=== PATIENT | female | born 1950 | race Caucasian/White ===

== ENCOUNTER 2017-03-07 05:55 | Day surgery (SDC) | payer MEDICARE ==
[2017-03-07] MEDS ORDERED: Ketamine HCl 50 MG/ML IV ONE (05:56)
[2017-03-07] MEDS ORDERED: DIPRIVAN 200 MG/20 ML IV ONE (05:56)
[2017-03-07] MEDS ORDERED: Lactated Ringers 1,000 ML IV SCH (06:30)
--- NOTE | 2017-03-07 08:02 | OP ---
SURGERY DATE/TIME: 03/07/2017 0717 PREOPERATIVE DIAGNOSIS: Diverticulitis. POSTOPERATIVE DIAGNOSIS: Few scattered sigmoid diverticula otherwise normal colon. PROCEDURE: Colonoscopy. SURGEON: Dr. Mcconnell. ANESTHESIA: Medications were given by the anesthesia department. HISTORY: The patient is a 66 year old white female presenting now for colonoscopic evaluation. She reports it has been 12 years since her previous colonoscopy which was normal. The patient has been having left lower quadrant abdominal pain. She went to the emergency room and had CT scan which showed diverticulitis. The patient now presents for colonoscopic evaluation. She was appraised of the risks of the procedure including the risk of perforation, phlebitis, untoward reaction to medication, bleeding or missed lesions. The patient verbalized her understanding and desired to have the procedure performed. DESCRIPTION OF PROCEDURE: The patient was given the medications by the anesthesia department. She had continuous pulse oximetry, ECG monitoring, intermittent blood pressure monitoring and tidal CO2 monitoring during the examination. She was placed in left lateral decubitus position. A digital rectal examination was performed and revealed normal anal sphincter tone and no masses. The flexible Olympus pediatric colonoscope was used to intubate the rectum. A view of the colon was developed sequentially to the cecum. Upon insertion and withdrawal and retroflex view, no mucosal lesions were noted other than a few scattered diverticula. The scope was removed from the patient who tolerated the procedure well and was sent back to OP recovery in good condition. The prep was noted to be good.
[2017-03-07 08:51] VITALS: BP 156/79; PULSE 62; O2SAT 99
== END 2017-03-07 08:50 | disposition home or self-care (01) ==
LOC: SDC 05:55
PROVIDERS: ATTEND Family Medicine
PROC: 0DJD8ZZ Inspection of Lower Intestinal Tract, Via Natural or Artificial Opening Endoscopic (ICD-10-PCS; principal; 2017-03-07)
DX: K57.30 Diverticulosis of large intestine without perforation or abscess without bleeding (principal)
CPT/HCPCS: 00810; J2704

== ENCOUNTER 2020-11-22 10:03 | Day surgery (SDC) | payer MEDICARE ==
[2020-11-22] MEDS ORDERED: Sodium Chloride 0.9(Preservative Free) 10 ML IJ ONE (10:04)
[2020-11-22] MEDS ORDERED: Depo-Medrol 40 MG/ML IM ONE (10:04)
[2020-11-22] MEDS ORDERED: DIPRIVAN 200 MG/20 ML IV ONE (11:41)
--- NOTE | 2020-11-22 12:18 | XRAY ---
Indication: Left L4-S1 transforaminal CHRISTIANO. Intraoperative fluoroscopy provided for 44 seconds. 4 digital spot image submitted for interpretation demonstrates posterior needle tip projecting over the left L4 and L5 nerve roots. Small amount of contrast injected for needle tip placement. Correlate with intraoperative findings/report. Incidental incompletely visualized bilateral L4 posterior fusion spinal hardware.
--- NOTE | 2020-11-22 12:21 | XRAY ---
44 seconds fluoroscopy time in surgery for left L4-S1 transforaminal CHRISTIANO.
[2020-11-22] MEDS ORDERED: Lactated Ringers 1,000 ML IV ONE (15:32)
== END 2020-11-22 12:10 | disposition home or self-care (01) ==
LOC: SDC-PAIN 10:03
PROVIDERS: ATTEND Psychiatry & Neurology Pain Medicine
DX: M54.16 Radiculopathy, lumbar region (principal); Z79.899 Other long term (current) drug therapy
CPT/HCPCS: 64479; 64480; 72100; 77003; J1030; J2704; Q9966

== ENCOUNTER 2021-04-29 19:44 | Emergency (ER) | payer MEDICARE ==
[2021-04-29] MEDS ORDERED: Sodium Chloride 0.9% 1000 ML 1,000 ML IV STA (19:49)
[2021-04-29] MEDS ORDERED: Sodium Chloride 0.9% 1000 ML 1,000 ML ONE (19:55)
[2021-04-29 21:57] LABS: INR 1.02 (0.8-3.0)
[2021-04-29 21:59] VITALS: O2SAT 98
[2021-04-29 22:03] LABS: ALBUMIN 4.2 g/dL (3.5-5.0); ALKALINE PHOSPHATASE 64 U/L (38-126); ANION GAP 17.2 MEQ/L (5-15); BLOOD UREA NITROGEN 17 mg/dL (7-17); CHLORIDE 103 mmol/L (98-107); Calcium 9.1 mg/dL (8.4-10.2); Carbon Dioxide 22 mmol/L (22-30); Creatinine 1 0.83 mg/dL (0.52-1.04); EST GLOMERULAR FILTRATION RATE > 60.0 ML/MIN; Glucose 98 mg/dL (74-106); Potassium 4.4 mmol/L (3.5-5.1); SGOT/AST 24 U/L (14-36); SGPT/ALT 14 U/L (0-35); SODIUM 138 mmol/L (137-145); Total Protein 6.9 g/dL (6.3-8.2)
[2021-04-29 22:07] VITALS: BP 134/60; PULSE 83
[2021-04-29 22:07] LABS: BASOPHIL % 0.2 % (0.0-0.4); Basophil (Absolute #) 0.02 (0-0.4); Eosinophil % 0.3 % (0.00-5.0); Eosinophil (Absolute #) 0.03 (0-0.5); Hematocrit 38.8 % (35-47); Hemoglobin 12.2 gm/dl (12.0-16.0); Lymphocyte (Absolute #) 1.11 (1.0-4.6); Lymphocytes % 10.4 % (24.0-44.0); Mean Cell Volume 92.4 fl (78-100); Mean Corpuscular Hgb Concent. 31.4 g/dl (32-36); Monocyte (Absolute #) 1.13 (0.0-1.3); Monocytes % 10.6 % (0.0-12.0); Neutrophil % 78.5 % (36.0-66.0); Platelet Count 153 K/mm3 (150-450); Red Cell Distribution Width 13.9 % (11.5-14.0); White Blood Count 10.7 K/mm3 (4.0-10.5)
--- NOTE | 2021-04-29 22:45 | ERPHSYRPT ---
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 She has been having pain in her neck and shoulders for 2 days and took some extra strength Tylenol for that prior to the episode of syncope. She has had no other pain no shortness of breath syncope was occurred about 1/2-hour pr ior to arrival uncertain of how long she was out she did feel it coming on as her vision got dark etc. Witnessed: by family Prior Episodes: single episode today Timing/Duration: today Precipitating Factors: lightheadedness Context: sitting Loss of Consciousness: brief (seconds) Charcter of event(s): felt faint Allergies/Adverse Reactions: acetaminophen [From Ultracet] Allergy (Verified 04/29/21 20:00) pass out tramadol [From Ultracet] Allergy (Verified 04/29/21 20:00) Vomiting Home Medications: Pregabalin [Lyrica] 100 mg PO BID 06/10/14 [History] Zolpidem Tartrate [Ambien] 5 mg PO QHS 06/10/14 [History] Bacillus Coagulans [Probiotic] 1 each PO DAILY 03/05/17 [History] Cholecalciferol (Vitamin D3) [Vitamin D] 2,000 unit PO DAILY 03/05/17 [History] Cyanocobalamin (Vitamin B-12) [Vitamin B-12] 1,000 mcg PO DAILY 03/05/17 [History] Magnesium 250 mg PO DAILY 03/05/17 [History] Polyethylene Glycol 3350 17 gm [Miralax Powder 17GM PACKET] 17 gm PO DAILY 03/05/17 [History] Zoledronic Acid/Mannitol/Wate* [Reclast 5 MG/100 Ml Solution] 5 mg IV UD 03/05/17 [History] Ibuprofen [Ibuprofen Ib] 200 mg PO Q6HPRN PRN 10/28/17 [History] [place]-3/Dha/Epa/Fish Oil [[place] 3 500 Softgel] 1 each PO DAILY 12/04/18 [History] Hx Tetanus, Diphtheria Vaccination/Date Given: Yes Hx Influenza Vaccination/Date Given: Yes Hx Pneumococcal Vaccination/Date Given: Yes Immunizations Up to Date: No Travel Risk - International Travel Have you traveled outside of the country in past 3 weeks: No - Coronavirus Screening Are you exhibiting any of the following symptoms?: No Close contact with a COVID-19 positive Pt in past 14-21 Days: No - Vaccine Status Have you recieved a Covid-19 vaccination: Yes Acls Specialist: Moderna - Vaccination Dates Date of 2cond Vaccination (if applicable): 09/06 Comment: booster 04/08 - Past Medical History Pertinent Past Medical History: No Neurological History: No Pertinent History ENT History: No Pertinent History Cardiac History: No Pertinent History Respiratory History: No Pertinent History Endocrine Medical History: No Pertinent History Musculoskeletal History: Muscular Dystrophy, Osteoarthritis, Osteoporosis GI Medical History: No Pertinent History History: No Pertinent History Psycho-Social History: No Pertinent History Female Reproductive Disorders: No Pertinent History Other Medical History: FIBROMYALGIA, MYOTONIC MD, L-SPINE FUSION 2007 - Past Surgical History Past Surgical History: Yes Neuro Surgical History: No Pertinent History Cardiac: No Pertinent History Respiratory: No Pertinent History Gastrointestinal: No Pertinent History Genitourinary: No Pertinent History Musculoskeletal: No Pertinent History Female Surgical History: Tubal Ligation, Other Other Surgical History: back surgery, cryo to cervix, T&A, leg surgery - Social History Smoking Status: Never smoker Exposure to second hand smoke: No Drug Use: none Patient Lives Alone: No - Review of Systems Constitutional: No Fever, No Chills Eyes: No Symptoms Ears, Nose, & Throat: No Symptoms Respiratory: No Cough, No Dyspnea Cardiac: No Chest Pain, No Edema, No Syncope Abdominal/Gastrointestinal: No Abdominal Pain, No Nausea, No Vomiting, No Diarrhea Genitourinary Symptoms: No Dysuria Musculoskeletal: No Back Pain, No Neck Pain Skin: No Rash Neurological: No Dizziness, No Focal Weakness, No Sensory Changes Psychological: No Symptoms Endocrine: No Symptoms All Other Systems: Reviewed and Negative Physical Exam - Nursing Vital Signs Nursing Vital Signs: Initial Vital Signs Temperature 98.6 F 04/29/21 20:01 Pulse Rate 67 04/29/21 20:01 Respiratory Rate 18 04/29/21 20:01 Blood Pressure 135/82 04/29/21 20:01 O2 Sat by Pulse Oximetry 97 04/29/21 20:01 Pain Scale Pain Intensity 5 - [place] Coma Scale Best Eye Response (Annia): (4) open spontaneously Best Verbal Response (Annia): (5) oriented Best Motor Response (Annia): (6) obeys commands [place] Total: 15 - Physical Exam General Appearance: mild distress, alert Eye Exam: bilateral eye: PERRL, EOMI Ears, Nose, Throat Exam: normal ENT inspection, pharynx normal, moist mucous membranes Neck Exam: normal inspection, non-tender, supple, full range of motion Respiratory: normal breath sounds, lungs clear, No chest tenderness, No respiratory distress Cardiovascular: regular rate/rhythm, capillary refill <2 sec, No murmur, No pulse deficit Gastrointestinal: soft, No tenderness, No distention, No mass Back Exam: normal inspection, normal range of motion, No CVA tenderness, No vertebral tenderness Extremity Exam: normal inspection, normal range of motion, pelvis stable, No tenderness Mental Status: alert, oriented x 3, 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 Exam: normal speech, PERRL, No facial droop Coordination/Gait: normal finger to nose Motor/Sensory: no motor deficit, no sensory deficit, no pronator drift Skin Exam: normal color, warm, dry, No rash SpO2: 98 - Course Nursing assessment & vital signs reviewed: Yes EKG Interpreted by Me: RATE (63), Sinus Rhythm, NORMAL AXIS, NORMAL INTERVALS, NORMAL QRS, NORMAL ST-T - Radiology Exams Chest X-ray Interpretation: Interpreted by me, Negative - CT Exams Head CT Interpretation: Tele-radiologist Report Cervical Spine CT Interpretation: Tele-radiologist Report Ordered Tests: Active Orders 24 hr Category Date Time Status EKG-ER Only STAT Care 04/29/21 19:49 Active IV Insertion STAT Care 04/29/21 19:49 Active Orthostatic Vital Signs STAT Care 04/29/21 19:49 Active CERVICAL SPINE WO CONTRAST [CT] Stat Exams 04/29/21 19:49 Taken CHEST 1 VIEW (PORTABLE) Stat Exams 04/29/21 19:50 Taken HEAD WITHOUT CONTRAST [CT] Stat Exams 04/29/21 19:49 Taken CBC W DIFF Stat Lab 04/29/21 21:39 Completed CMP Stat Lab 04/29/21 21:39 Completed D-DIMER QUANTITATIVE Stat Lab 04/29/21 21:39 Completed PROTIME WITH INR Stat Lab 04/29/21 21:39 Completed TROPONIN Q3H Lab 04/29/21 21:59 Completed UA W/RFX UR CULTURE Stat Lab 04/29/21 19:49 Ordered Medication Summary Discontinued Medications Generic Name Dose Route Start Last Admin Trade Name Preetq PRN Reason Stop Dose Admin Sodium Chloride 1,000 mls @ 999 mls/hr 04/29/21 19:49 04/29/21 21:58 Sodium Chloride 0.9% 1000 Ml IV 04/29/21 20:49 Infused .Q1H1M STA Infusion Sodium Chloride Confirm 04/29/21 19:55 Sodium Chloride 0.9% 1000 Ml Administered 04/29/21 19:56 Dose 1,000 mls @ ud .ROUTE .STK-MED ONE Lab/Rad Data: Laboratory Result Diagrams 04/29/21 21:39 04/29/21 21:39 Laboratory Results 04/29/21 04/29/21 04/29/21 Range/Units 21:59 21:39 21:39 WBC (4.0-10.5) K/mm3 RBC (4.1-5.4) M/mm3 Hgb (12.0-16.0) gm/dl Hct (35-47) % MCV (78-100) fl MCH (26-32) pg MCHC (32-36) g/dl RDW (11.5-14.0) % Plt Count (150-450) K/mm3 MPV (7.5-11.0) fl Gran % (36.0-66.0) % Eos # (Auto) (0-0.5) Absolute Lymphs (auto) (1.0-4.6) Absolute Monos (auto) (0.0-1.3) Lymphocytes % (24.0-44.0) % Monocytes % (0.0-12.0) % Eosinophils % (0.00-5.0) % Basophils % (0.0-0.4) % Absolute Granulocytes (1.4-6.9) Basophils # (0-0.4) PT 12.0 (9.4-12.5) SECONDS INR 1.02 (0.8-3.0) D-Dimer 503 H* (215-500) ng/mL Sodium 138 (137-145) mmol/L Potassium 4.4 (3.5-5.1) mmol/L Chloride 103 (98-107) mmol/L Carbon Dioxide 22 (22-30) mmol/L Anion Gap 17.2 H (5-15) MEQ/L BUN 17 (7-17) mg/dL Creatinine 0.83 (0.52-1.04) mg/dL Estimated GFR > 60.0 ML/MIN Glucose 98 (74-106) mg/dL Calcium 9.1 (8.4-10.2) mg/dL Total Bilirubin 0.70 (0.2-1.3) mg/dL AST 24 (14-36) U/L ALT 14 (0-35) U/L Alkaline Phosphatase 64 (38-126) U/L Troponin I < 0.012 (0.000-0.034) ng/mL Serum Total Protein 6.9 (6.3-8.2) g/dL Albumin 4.2 (3.5-5.0) g/dL 04/29/21 Range/Units 21:39 WBC 10.7 H (4.0-10.5) K/mm3 RBC 4.20 (4.1-5.4) M/mm3 Hgb 12.2 (12.0-16.0) gm/dl Hct 38.8 (35-47) % MCV 92.4 (78-100) fl MCH 29.0 (26-32) pg MCHC 31.4 L (32-36) g/dl RDW 13.9 (11.5-14.0) % Plt Count 153 (150-450) K/mm3 MPV 13.0 H (7.5-11.0) fl Gran % 78.5 H (36.0-66.0) % Eos # (Auto) 0.03 (0-0.5) Absolute Lymphs (auto) 1.11 (1.0-4.6) Absolute Monos (auto) 1.13 (0.0-1.3) Lymphocytes % 10.4 L (24.0-44.0) % Monocytes % 10.6 (0.0-12.0) % Eosinophils % 0.3 (0.00-5.0) % Basophils % 0.2 (0.0-0.4) % Absolute Granulocytes 8.40 H (1.4-6.9) Basophils # 0.02 (0-0.4) PT (9.4-12.5) SECONDS INR (0.8-3.0) D-Dimer (215-500) ng/mL Sodium (137-145) mmol/L Potassium (3.5-5.1) mmol/L Chloride (98-107) mmol/L Carbon Dioxide (22-30) mmol/L Anion Gap (5-15) MEQ/L BUN (7-17) mg/dL Creatinine (0.52-1.04) mg/dL Estimated GFR ML/MIN Glucose (74-106) mg/dL Calcium (8.4-10.2) mg/dL Total Bilirubin (0.2-1.3) mg/dL AST (14-36) U/L ALT (0-35) U/L Alkaline Phosphatase (38-126) U/L Troponin I (0.000-0.034) ng/mL Serum Total Protein (6.3-8.2) g/dL Albumin (3.5-5.0) g/dL - Progress Progress: improved - Departure Departure Disposition: AMA Clinical Impression: Syncope Condition: Stable Critical Care Time: No Referrals: BARRETT SILVERIO [Primary Care Provider] - Follow up/PCP as directed Instructions: Syncope (Fainting) (DC)
--- NOTE | 2021-04-30 08:55 | XRAY ---
Indication: Syncope. Comparison: October 02, 2006. Portable chest again hyperinflated and clear. Heart not enlarged. Bony thorax intact again with mild degenerative changes and mild levoscoliosis. New incompletely visualized lumbar fusion hardware.
--- NOTE | 2021-04-30 08:55 | XRAY ---
Indication: Syncope. Status post fall. Multiple contiguous axial images obtained through the head without contrast. Comparison: None Normal appearing brain parenchyma, ventricles, and bony calvarium. Visualized paranasal sinuses and mastoid air cells are clear. Impression: Normal CT head without contrast exam. Comment: Preliminary interpretation made by [facility]. No critical discrepancy.
--- NOTE | 2021-04-30 08:58 | XRAY ---
Indication: Syncope. Status post fall. Multiple contiguous axial images obtained through the cervical spine. Sagittal and coronal reformatted images obtained. Comparison: None Axial images negative for acute fracture, suspicious bony lesions, or spinal canal stenosis. Mild C5-C7 degenerative endplate spurring and mild/moderate C5-T1 bilateral degenerative facet arthropathy. Sagittal and coronal reformatted images demonstrates normal lordosis with 2 mm anterolisthesis of C7 on T1. C5-C6 degenerative disc space narrowing. No acute compression fracture or jumped facet. Normal appearing craniocervical junction. Visualized noncontrasted soft tissues demonstrates mild bilateral carotid calcifications. Lung apices are clear. Impression: 1. Negative for acute fracture. 2. C5-C7 degenerative spondylosis and minimal grade 1 C7 spondylolisthesis. Comment: Preliminary interpretation made by C. No critical discrepancy.
== END 2021-04-29 22:44 | disposition left against medical advice (07) ==
LOC: ED 19:44
DX: R55 Syncope and collapse (principal); R42 Dizziness and giddiness; G71.11 Myotonic muscular dystrophy
CPT/HCPCS: 36000; 36415; 70450; 71045; 72125; 80053; 84484; 85025; 85379; 85610; 93005; 99284

== ENCOUNTER 2022-06-25 09:25 | Emergency (ER) | payer MEDICARE ==
--- NOTE | 2022-06-25 09:29 | ERPHSYRPT ---
- History of Present Illness Time Seen by Provider: 06/25/22 09:28 Source: patient Exam Limitations: no limitations Physician History: This is a 71-year-old white female patient of Dr. Dimitri Aldana who has a history of fibromyalgia as well as myotonic muscular dystrophy and osteoarthritis and presents to the emergency department with generalized body aches and pain as well as associated nausea vomiting and diarrhea. Patient has been off her Lyrica for 4 days. Within 24 hours after her not having her Lyrica, she began having the above-stated symptoms. Prior to her running out of Lyrica, she did not have any new complaints. Patient has chronic body aches but her symptoms are much worse and associated with nausea vomiting diarrhea since she has been off her Lyrica. She has an appointment to see Dr. Dimitri Aldana tomorrow, 06/26/2022 to refill her Lyrica prescription. Patient denies specific chest pain, shortness of breath or abdominal pain Timing/Duration: day(s) (3) Severity: moderate Modifying Factors: Improves With: movement Associated Symptoms: nausea, vomiting, loss of appetite, weakness, No abdominal pain, No shortness of breath, No chest pain, No fever Allergies/Adverse Reactions: acetaminophen [From Ultracet] Allergy (Verified 06/25/22 09:38) pass out tramadol [From Ultracet] Allergy (Verified 06/25/22 09:38) Vomiting Home Medications: Pregabalin [Lyrica] 100 mg PO BID 06/10/14 [History] Zolpidem Tartrate [Ambien] 5 mg PO QHS 06/10/14 [History] Hx Tetanus, Diphtheria Vaccination/Date Given: Yes Hx Influenza Vaccination/Date Given: Yes Hx Pneumococcal Vaccination/Date Given: Yes Travel Risk - International Travel Have you traveled outside of the country in past 3 weeks: No - Coronavirus Screening Are you exhibiting any of the following symptoms?: Yes Symptoms: Vomiting/Diarrhea, Headaches/Body Aches/Fatigue - Vaccine Status Have you recieved a Covid-19 vaccination: Yes 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 - Vaccination Dates Date of 2cond Vaccination (if applicable): 09/06 Comment: booster 04/08 - Review of Systems Constitutional: Weakness Eyes: No Symptoms Ears, Nose, & Throat: No Symptoms Respiratory: No Symptoms Cardiac: No Symptoms Abdominal/Gastrointestinal: Nausea, Vomiting, Diarrhea, Appetite Changes, No Abdominal Pain Genitourinary Symptoms: No Symptoms Musculoskeletal: Arthralgias, Myalgias Skin: No Symptoms Neurological: No Symptoms Psychological: No Symptoms Endocrine: No Symptoms Hematologic/Lymphatic: No Symptoms Immunological/Allergic: No Symptoms All Other Systems: Reviewed and Negative - Past Medical History Pertinent Past Medical History: No Neurological History: No Pertinent History ENT History: No Pertinent History Cardiac History: No Pertinent History Respiratory History: No Pertinent History Endocrine Medical History: No Pertinent History Musculoskeletal History: Muscular Dystrophy, Osteoarthritis, Osteoporosis GI Medical History: No Pertinent History History: No Pertinent History Psycho-Social History: No Pertinent History Female Reproductive Disorders: No Pertinent History Other Medical History: FIBROMYALGIA, MYOTONIC MD, L-SPINE FUSION 2007 - Past Surgical History Past Surgical History: Yes Neuro Surgical History: No Pertinent History Cardiac: No Pertinent History Respiratory: No Pertinent History Gastrointestinal: No Pertinent History Genitourinary: No Pertinent History Musculoskeletal: No Pertinent History Female Surgical History: Tubal Ligation, Other Other Surgical History: back surgery, cryo to cervix, T&A, leg surgery - Social History Smoking Status: Never smoker Exposure to second hand smoke: No Drug Use: none Patient Lives Alone: No - Nursing Vital Signs Nursing Vital Signs: Initial Vital Signs Temperature 98.2 F 06/25/22 09:38 Pulse Rate 68 06/25/22 09:38 Respiratory Rate 19 06/25/22 09:38 Blood Pressure 176/84 06/25/22 09:38 O2 Sat by Pulse Oximetry 100 06/25/22 09:38 Pain Scale Pain Intensity 0 - Physical Exam General Appearance: no apparent distress, alert, anxiety, thin Eye Exam: PERRL/EOMI, eyes nml inspection Ears, Nose, Throat Exam: normal ENT inspection, moist mucous membranes Neck Exam: normal inspection, non-tender, supple, full range of motion Respiratory Exam: normal breath sounds, lungs clear, airway intact, No chest ten derness, No respiratory distress Cardiovascular Exam: regular rate/rhythm, normal heart sounds, normal peripheral pulses Gastrointestinal/Abdomen Exam: soft, normal bowel sounds, No tenderness Pelvic Exam: not done Rectal Exam: not done Back Exam: normal inspection, normal range of motion, No CVA tenderness, No vertebral tenderness Extremity Exam: normal inspection, normal range of motion, pelvis stable Neurologic Exam: alert, oriented x 3, cooperative, 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 nml as tested, normal mood/affect, nml cerebellar function, nml station & gait, sensation nml Skin Exam: normal color, warm, dry Lymphatic Exam: No adenopathy SpO2 Interpretation: normal - Course Nursing assessment & vital signs reviewed: Yes Ordered Tests: Active Orders 24 hr Category Date Time Status IV Insertion STAT Care 06/25/22 09:58 Active AMYLASE Stat Lab 06/25/22 10:17 Completed CBC W DIFF Stat Lab 06/25/22 10:17 Completed CMP Stat Lab 06/25/22 10:17 Completed CULTURE,URINE Stat Lab 06/25/22 10:15 Received LIPASE Stat Lab 06/25/22 10:17 Completed UA W/RFX UR CULTURE Stat Lab 06/25/22 10:15 Completed Urine Triage Profile Stat Lab 06/25/22 10:15 Completed Medication Summary Discontinued Medications Generic Name Dose Route Start Last Admin Trade Name Freq PRN Reason Stop Dose Admin Sodium Chloride 1,000 mls @ 999 mls/hr 06/25/22 09:58 06/25/22 11:20 Sodium Chloride 0.9% 1000 Ml IV 06/25/22 10:58 Infused .Q1H1M STA Infusion Sodium Chloride Confirm 06/25/22 10:17 Sodium Chloride 0.9% 1000 Ml Administered 06/25/22 10:18 Dose 1,000 mls @ ud .ROUTE .STK-MED ONE Ondansetron HCl 4 mg 06/25/22 09:58 06/25/22 10:18 Ondansetron Hcl 4 Mg/2 Ml Vial IV 06/25/22 09:59 4 mg STAT ONE Administration Ondansetron HCl Confirm 06/25/22 10:17 Ondansetron Hcl 4 Mg/2 Ml Vial Administered 06/25/22 10:18 Dose 4 mg .ROUTE .STK-MED ONE Ondansetron HCl 4 mg 06/25/22 11:04 06/25/22 11:06 Ondansetron Hcl 4 Mg/2 Ml Vial IV 06/25/22 11:05 4 mg STAT ONE Administration Ondansetron HCl Confirm 06/25/22 11:05 Ondansetron Hcl 4 Mg/2 Ml Vial Administered 06/25/22 11:06 Dose 4 mg .ROUTE .STK-MED ONE Pregabalin 100 mg 06/25/22 10:01 06/25/22 11:40 Pregabalin 100 Mg Capsule PO 06/25/22 10:02 100 mg STAT ONE Administration Lab/Rad Data: Laboratory Result Diagrams 06/25/22 10:17 06/25/22 10:17 Laboratory Results 06/25/22 06/25/22 06/25/22 Range/Units 10:17 10:17 10:15 WBC 7.5 (4.0-10.5) x10^3/uL RBC 4.39 (4.1-5.4) x10^6/uL Hgb 13.1 (12.0-16.0) g/dL Hct 40.5 (35-47) % MCV 92.3 (78-100) fL MCH 29.8 (26-32) pg MCHC 32.3 (32-36) g/dL RDW 13.5 (11.5-14.0) % Plt Count 240 (150-450) x10^3/uL MPV 11.3 H (7.5-11.0) fL Gran % 76.7 H (36.0-66.0) % Immature Gran % (Auto) 0.3 (0.00-0.4) % Nucleat RBC Rel Count 0.0 (0.00-0.1) % Eos # (Auto) 0.03 (0-0.5) x10^3/uL Immature Gran # (Auto) 0.02 (0.00-0.03) x10^3u/L Absolute Lymphs (auto) 1.14 (1.0-4.6) x10^3/uL Absolute Monos (auto) 0.50 (0.0-1.3) x10^3/uL Absolute Nucleated RBC 0.00 (0.00-0.01) x10^3u/L Lymphocytes % 15.2 L (24.0-44.0) % Monocytes % 6.7 (0.0-12.0) % Eosinophils % 0.4 (0.00-5.0) % Basophils % 0.7 (0.0-0.4) % Absolute Granulocytes 5.74 (1.4-6.9) x10^3/uL Basophils # 0.05 (0-0.4) x10^3/uL Sodium 136 L (137-145) mmol/L Potassium 4.5 (3.5-5.1) mmol/L Chloride 105 (98-107) mmol/L Carbon Dioxide 24 (22-30) mmol/L Anion Gap 12.1 (5-15) MEQ/L BUN 11 (7-17) mg/dL Creatinine 0.69 (0.52-1.04) mg/dL Estimated GFR > 60.0 ML/MIN Glucose 96 (74-106) mg/dL Calcium 9.4 (8.4-10.2) mg/dL Total Bilirubin 0.70 (0.2-1.3) mg/dL AST 30 (14-36) U/L ALT 19 (0-35) U/L Alkaline Phosphatase 51 (38-126) U/L Serum Total Protein 7.5 (6.3-8.2) g/dL Albumin 4.6 (3.5-5.0) g/dL Amylase 61 (30-110) U/L Lipase 61 (23-300) U/L Urine Color (Yellow) Urine Appearance (Clear) Urine pH (4.6-8.0) Ur Specific [place] (1.005-1.030) Urine Protein (Negative) Urine Glucose (UA) (Negative) mg/dL Urine Ketones (Negative) Urine Blood (Negative) Urine Nitrite (Negative) Urine Bilirubin (Negative) Urine Urobilinogen (0.2) mg/dL Ur Leukocyte Esterase (Negative) U Hyaline Cast (Auto) (0-2) /LPF Urine Microscopic RBC (0-5) /HPF Urine Microscopic WBC (0-5) /HPF Ur Epithelial Cells (None Seen) /HPF Urine Bacteria (None Seen) /HPF Urine Culture Reflexed (NO) Urine Opiates Level (NEGATIVE) Ur Methadone (NEGATIVE) Urine Barbiturates (NEGATIVE) Ur Phencyclidine (PCP) (NEGATIVE) Urine Amphetamine (NEGATIVE) U Benzodiazepine Level (NEGATIVE) Urine Cocaine (NEGATIVE) Urine Marijuana (THC) (NEGATIVE) Influenza Type A Ag NEGATIVE (NEGATIVE) Influenza Type B Ag NEGATIVE (NEGATIVE) RSV (PCR) NEGATIVE (Negative) SARS-CoV-2 (PCR) NEGATIVE (NEGATIVE) 06/25/22 06/25/22 Range/Units 10:15 10:15 WBC (4.0-10.5) x10^3/uL RBC (4.1-5.4) x10^6/uL Hgb (12.0-16.0) g/dL Hct (35-47) % MCV (78-100) fL MCH (26-32) pg MCHC (32-36) g/dL RDW (11.5-14.0) % Plt Count (150-450) x10^3/uL MPV (7.5-11.0) fL Gran % (36.0-66.0) % Immature Gran % (Auto) (0.00-0.4) % Nucleat RBC Rel Count (0.00-0.1) % Eos # (Auto) (0-0.5) x10^3/uL Immature Gran # (Auto) (0.00-0.03) x10^3u/L Absolute Lymphs (auto) (1.0-4.6) x10^3/uL Absolute Monos (auto) (0.0-1.3) x10^3/uL Absolute Nucleated RBC (0.00-0.01) x10^3u/L Lymphocytes % (24.0-44.0) % Monocytes % (0.0-12.0) % Eosinophils % (0.00-5.0) % Basophils % (0.0-0.4) % Absolute Granulocytes (1.4-6.9) x10^3/uL Basophils # (0-0.4) x10^3/uL Sodium (137-145) mmol/L Potassium (3.5-5.1) mmol/L Chloride (98-107) mmol/L Carbon Dioxide (22-30) mmol/L Anion Gap (5-15) MEQ/L BUN (7-17) mg/dL Creatinine (0.52-1.04) mg/dL Estimated GFR ML/MIN Glucose (74-106) mg/dL Calcium (8.4-10.2) mg/dL Total Bilirubin (0.2-1.3) mg/dL AST (14-36) U/L ALT (0-35) U/L Alkaline Phosphatase (38-126) U/L Serum Total Protein (6.3-8.2) g/dL Albumin (3.5-5.0) g/dL Amylase (30-110) U/L Lipase (23-300) U/L Urine Color Yellow (Yellow) Urine Appearance Clear (Clear) Urine pH 5.0 (4.6-8.0) Ur Specific [place] 1.025 (1.005-1.030) Urine Protein Trace A (Negative) Urine Glucose (UA) Negative (Negative) mg/dL Urine Ketones Trace A (Negative) Urine Blood Negative (Negative) Urine Nitrite Negative (Negative) Urine Bilirubin Negative (Negative) Urine Urobilinogen 1.0 A (0.2) mg/dL Ur Leukocyte Esterase Small A (Negative) U Hyaline Cast (Auto) 3-5 A (0-2) /LPF Urine Microscopic RBC 0-2 (0-5) /HPF Urine Microscopic WBC 0-2 (0-5) /HPF Ur Epithelial Cells None Seen (None Seen) /HPF Urine Bacteria None Seen (None Seen) /HPF Urine Culture Reflexed YES (NO) Urine Opiates Level POSITIVE (NEGATIVE) Ur Methadone NEGATIVE (NEGATIVE) Urine Barbiturates NEGATIVE (NEGATIVE) Ur Phencyclidine (PCP) NEGATIVE (NEGATIVE) Urine Amphetamine NEGATIVE (NEGATIVE) U Benzodiazepine Level NEGATIVE (NEGATIVE) Urine Cocaine NEGATIVE (NEGATIVE) Urine Marijuana (THC) NEGATIVE (NEGATIVE) Influenza Type A Ag (NEGATIVE) Influenza Type B Ag (NEGATIVE) RSV (PCR) (Negative) SARS-CoV-2 (PCR) (NEGATIVE) - Progress Progress: improved, re-examined Progress Note: 06/25/22 12:30 Medical decision making: This patient's medical issue today is of moderate co mplexity. I obtained history from the patient directly as well as additional history from Dr. Dimitri Aldana when I spoke with her about this patient being here in the hospital. I also used the findings on physical exam and the history above to determine management in the emergency department. This included intravenous fluids, antiemetic, oral Lyrica, and obtaining blood work and urine studies. I also reviewed the results of the work-up here in the emergency department. The patient appears to have a mild urinary tract infection and mild dehydration. We provided the patient with 1-1/2 L of normal saline intravenously and intravenous Rocephin. Patient also received Zofran intravenously. Patient's symptoms have improved. Based on the patient's history, physical findings, results of laboratory work-up and response to the therapy provided, the discharge plan is for the patient to resume her medication as prescribed, drink plenty of fluids and to keep her appointment with Dr. Dimitri Aldana for 06/26/2022. This discharge plan was discussed in detail with the patient and her spouse. Discussed with .: Kika Counseled pt/family regarding: lab results, diagnosis, need for follow-up - Departure Departure Disposition: Home Clinical Impression: Anxiety about health, UTI (urinary tract infection), Vomiting, Medication withdrawal Condition: Stable Critical Care Time: No Referrals: BARRETT SILVERIO [Primary Care Provider] - Follow up/PCP as directed Additional Instructions: Drink plenty of fluids. Take your medication as prescribed follow-up with Dr. Dimitri Aldana in her office tomorrow. Prescriptions: Ondansetron ODT 4 MG [Zofran Odt 4 mg] 4 mg PO Q6H PRN PRN #10 tablet PRN Reason: Vomiting
[2022-06-25] MEDS ORDERED: Sodium Chloride 0.9% 1000 ML 1,000 ML IV STA (09:58)
[2022-06-25] MEDS ORDERED: Zofran 4 MG/2 ML VIAL IV ONE ×2 (09:58→11:04)
[2022-06-25] MEDS ORDERED: LYRICA 100MG PO ONE ×2 (10:01→12:34)
[2022-06-25] MEDS ORDERED: Zofran 4 MG/2 ML VIAL ONE ×2 (10:17→11:05)
[2022-06-25] MEDS ORDERED: Sodium Chloride 0.9% 1000 ML 1,000 ML ONE (10:17)
[2022-06-25 10:19] LABS: Absolute Neutrophil Ct (ANC) 5.74 x10^3/uL (1.4-6.9); BASOPHIL % 0.7 % (0.0-0.4); Basophil (Absolute #) 0.05 x10^3/uL (0-0.4); Eosinophil % 0.4 % (0.00-5.0); Eosinophil (Absolute #) 0.03 x10^3/uL (0-0.5); Hematocrit 40.5 % (35-47); Hemoglobin 13.1 g/dL (12.0-16.0); IMMATURE GRAN # 0.02 x10^3u/L (0.00-0.03); IMMATURE GRAN % 0.3 % (0.00-0.4); Lymphocyte (Absolute #) 1.14 x10^3/uL (1.0-4.6); Lymphocytes % 15.2 % (24.0-44.0); Mean Cell Volume 92.3 fL (78-100); Mean Corpuscular Hemoglobin 29.8 pg (26-32); Mean Corpuscular Hgb Concent. 32.3 g/dL (32-36); Mean Platelet Volume 11.3 fL (7.5-11.0); Monocytes % 6.7 % (0.0-12.0); Neutrophil % 76.7 % (36.0-66.0); Platelet Count 240 x10^3/uL (150-450); Red Blood Count 4.39 x10^6/uL (4.1-5.4); Red Cell Distribution Width 13.5 % (11.5-14.0); White Blood Count 7.5 x10^3/uL (4.0-10.5)
[2022-06-25 10:28] LABS: ADD URINE CULTURE? YES (NO); Appearance Clear (Clear); Bacteria None Seen /HPF (None Seen); Bilirubin Negative (Negative); Blood Negative (Negative); Epithelial Cells None Seen /HPF (None Seen); Glucose, Urine Negative (Negative); Ketones Trace (Negative); Leukocyte Esterase Small (Negative); Nitrite Negative (Negative); Protein,Urine Dip Trace (Negative); RBC 0-2 /HPF (0-5); Specific Gravity 1.025 (1.005-1.030); WBC 0-2 /HPF (0-5)
[2022-06-25 10:30] LABS: ALBUMIN 4.6 g/dL (3.5-5.0); ALKALINE PHOSPHATASE 51 U/L (38-126); AMYLASE 61 U/L (30-110); ANION GAP 12.1 MEQ/L (5-15); BLOOD UREA NITROGEN 11 mg/dL (7-17); CHLORIDE 105 mmol/L (98-107); Calcium 9.4 mg/dL (8.4-10.2); Carbon Dioxide 24 mmol/L (22-30); Creatinine 1 0.69 mg/dL (0.52-1.04); EST GLOMERULAR FILTRATION RATE > 60.0 ML/MIN; Glucose 96 mg/dL (74-106); LIPASE 61 U/L (23-300); Potassium 4.5 mmol/L (3.5-5.1); SGOT/AST 30 U/L (14-36); SGPT/ALT 19 U/L (0-35); SODIUM 136 mmol/L (137-145); Total Protein 7.5 g/dL (6.3-8.2)
[2022-06-25 10:38] LABS: Amphetamine,Urine NEGATIVE (NEGATIVE); Barbiturate,Urine NEGATIVE (NEGATIVE); Benzodiazepine,Urine NEGATIVE (NEGATIVE); Cocaine,Urine NEGATIVE (NEGATIVE); Methadone,Urine NEGATIVE (NEGATIVE); Opiate,Urine POSITIVE (NEGATIVE); PCP,Urine NEGATIVE (NEGATIVE); THC,Urine NEGATIVE (NEGATIVE)
[2022-06-25 10:51] LABS: INFLUENZA A NEGATIVE (NEGATIVE); INFLUENZA B NEGATIVE (NEGATIVE); RESPIRATORY SYNCTIAL VIRUS NEGATIVE (Negative); SARS-CoV-2 Xpert Express NEGATIVE (NEGATIVE)
[2022-06-25 12:03] VITALS: BP 131/66; PULSE 77; O2SAT 97
[2022-06-25] MEDS ORDERED: Sodium Chloride 0.9% 500 ML 500 ML IV ONE ×2 (12:28→12:32)
[2022-06-25] MEDS ORDERED: ROCEPHIN 1 Gm-D5w 50 ml Bag** 1 G/50 ML IVPB IV STA (12:28)
[2022-06-25] MEDS ORDERED: ROCEPHIN 1 Gm-D5w 50 ml Bag** 1 G/50 ML IVPB IV ONE (12:32)
== END 2022-06-25 13:50 | disposition home or self-care (01) ==
LOC: ED 09:25
DX: N39.0 Urinary tract infection, site not specified (principal); F19.239 Other psychoactive substance dependence with withdrawal, unspecified; F45.9 Somatoform disorder, unspecified; R11.2 Nausea with vomiting, unspecified; M79.10 Myalgia, unspecified site; R19.7 Diarrhea, unspecified; Z79.899 Other long term (current) drug therapy; Z20.828 Contact with and (suspected) exposure to other viral communicable diseases
CPT/HCPCS: 0241U; 36000; 36415; 80053; 80307; 81001; 82150; 83690; 85025; 87086; 96360; 96365; 96374; 96376; 99284; J0696; J2405; A9270-GY

== ENCOUNTER 2024-05-21 15:32 | Emergency (ER) | payer MEDICARE ==
[2024-05-21 15:44] VITALS: TEMP 98.5
--- NOTE | 2024-05-21 15:44 | ERPHSYRPT ---
- History of Present Illness Time Seen by Provider: 05/21/24 15:43 Source: patient, family Exam Limitations: no limitations Physician History: This is a 73-year-old white female patient who arrives by private vehicle accompanied by her daughter and is a patient Dr. Beal for 4-day history of cough, congestion and bodyaches. The patient is under a lot of stress and has not been sleeping well. Patient's mother is in hospice facility and she has been staying there late nights and early mornings and not getting much sleep. They are concerned about her being dehydrated because she is not eating or drinking much. The patient sounds congested. Patient has a history of fibromyalgia, myotonic muscular dystrophy, osteoporosis and osteoarthritis. She denies chest pain. She denies cough. Her room air oxygen saturation level is 98%. Cough Quality/Degree: mild, dry cough Possible Cause: no prior episodes Modifying Factors: Improves With: coughing Associated Symptoms: cough, muscle aches, nasal congestion, No fever, No chest pain/soreness, No dizziness, No earache, No headache, No shortness of breath Allergies/Adverse Reactions: acetaminophen [From Ultracet] Allergy (Verified 10/09/23 10:06) pass out tramadol [From Ultracet] Allergy (Verified 10/09/23 10:06) Vomiting Home Medications: Pregabalin [Lyrica] 100 mg PO BID 06/10/14 [History] Zolpidem Tartrate [Ambien] 5 mg PO QHS 06/10/14 [History] Duloxetine HCl [Cymbalta] 60 mg PO DAILY 10/23/22 [History] Hx Tetanus, Diphtheria Vaccination/Date Given: Yes Hx Influenza Vaccination/Date Given: Yes Hx Pneumococcal Vaccination/Date Given: Yes Travel Risk - International Travel Have you traveled outside of the country in past 3 weeks: No - Emerging Infectious Disease Are you exhibiting symptoms associated with any current EIDs: Yes Symptoms: Cough: New Onset, Headaches/Body Aches/ - Review of Systems Constitutional: No Symptoms Eyes: No Symptoms Ears, Nose, & Throat: No Symptoms Respiratory: Cough Cardiac: No Symptoms Abdominal/Gastrointestinal: No Symptoms Genitourinary Symptoms: No Symptoms Musculoskeletal: Arthralgias, Myalgias Skin: No Symptoms Neurological: No Symptoms Psychological: No Symptoms Endocrine: No Symptoms Hematologic/Lymphatic: No Symptoms Immunological/Allergic: No Symptoms All Other Systems: Reviewed and Negative - Past Medical History Pertinent Past Medical History: No Neurological History: No Pertinent History ENT History: No Pertinent History Cardiac History: No Pertinent History Respiratory History: No Pertinent History Endocrine Medical History: No Pertinent History Musculoskeletal History: Muscular Dystrophy, Osteoarthritis, Osteoporosis GI Medical History: No Pertinent History History: No Pertinent History Psycho-Social History: No Pertinent History Female Reproductive Disorders: No Pertinent History Other Medical History: FIBROMYALGIA, MYOTONIC MD, L-SPINE FUSION 2007 - Past Surgical History Past Surgical History: Yes Neuro Surgical History: No Pertinent History Cardiac: No Pertinent History Respiratory: No Pertinent History Gastrointestinal: No Pertinent History Genitourinary: No Pertinent History Musculoskeletal: No Pertinent History Female Surgical History: Tubal Ligation, Other Other Surgical History: back surgery, cryo to cervix, T&A, leg surgery - Social History Smoking Status: Never smoker Exposure to second hand smoke: No Drug Use: none Patient Lives Alone: No - Nursing Vital Signs Nursing Vital Signs: Initial Vital Signs Temperature 98.5 F 05/21/24 15:37 Pulse Rate 102 H 05/21/24 15:37 Respiratory Rate 22 05/21/24 15:37 Blood Pressure 147/73 05/21/24 15:37 O2 Sat by Pulse Oximetry 98 05/21/24 15:37 Pain Scale Pain Intensity 0 - Physical Exam General Appearance: no apparent distress, alert, thin Eye Exam: PERRL/EOMI, eyes nml inspection Ears, Nose, Throat Exam: normal ENT inspection, moist mucous membranes Neck Exam: normal inspection, non-tender, supple, full range of motion Respiratory Exam: normal breath sounds, lungs clear, airway intact, No chest tenderness, No respiratory distress Cardiovascular Exam: regular rate/rhythm, normal heart sounds, normal peripheral pulses Gastrointestinal/Abdomen Exam: soft, normal bowel sounds, No tenderness Pelvic Exam: not done Rectal Exam: not done Back Exam: normal inspection, normal range of motion, No CVA tenderness, No vertebral tenderness Extremity Exam: normal inspection, normal range of motion, pelvis stable Neurologic Exam: alert, oriented x 3, cooperative, 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 nml as tested, nml cerebellar function, nml station & gait, sensation nml Skin Exam: normal color, warm, dry Lymphatic Exam: No adenopathy SpO2 Interpretation: normal O2 Delivery: Room Air - Course Nursing assessment & vital signs reviewed: Yes Ordered Tests: Active Orders 24 hr Category Date Time Status CHEST 1 VIEW (PORTABLE) Stat Exams 05/21/24 15:43 Taken CULTURE,URINE Stat Lab 05/21/24 16:20 Received MONO SCREEN Stat Lab 05/21/24 16:10 Received UA W/RFX UR CULTURE Stat Lab 05/21/24 16:20 Completed Medication Summary Discontinued Medications Generic Name Dose Route Start Last Admin Trade Name Omega PRN Reason Stop Dose Admin Sodium Chloride 500 mls @ 500 mls/hr 05/21/24 16:04 05/21/24 16:08 Sodium Chloride 0.9% 500 Ml IV 05/21/24 17:03 500 mls/hr .Q1H ONE Administration Sodium Chloride Confirm 05/21/24 16:07 Sodium Chloride 0.9% 500 Ml Administered 05/21/24 16:08 Dose 500 mls @ ud IV .STK-MED ONE Lab/Rad Data: Laboratory Results 05/21/24 05/21/24 05/21/24 Range/Units 16:20 16:03 16:03 Urine Color Yellow (Yellow) Urine Appearance Clear (Clear) Urine pH 6.0 (4.6-8.0) Ur Specific [place] 1.020 (1.005-1.030) Urine Protein Trace A (Negative) Urine Glucose (UA) Negative (Negative) mg/dL Urine Ketones Trace A (Negative) Urine Blood Negative (Negative) Urine Nitrite Negative (Negative) Urine Bilirubin Negative (Negative) Urine Urobilinogen 0.2 (0.2) mg/dL Ur Leukocyte Esterase Small A (Negative) U Hyaline Cast (Auto) 0-2 (0-2) /LPF Urine Microscopic RBC 0-2 (0-5) /HPF Urine Microscopic WBC 3-5 (0-5) /HPF Ur Epithelial Cells Rare (None Seen) /HPF Urine Bacteria Rare A (None Seen) /HPF Urine Culture Reflexed YES (NO) Influenza Type A Ag POSITIVE A (NEGATIVE) Influenza Type B Ag NEGATIVE (NEGATIVE) RSV (PCR) NEGATIVE (NEGATIVE) SARS-CoV-2 (PCR) NEGATIVE (NEGATIVE) Group A Strep Antibody NOT DETECTED (NEGATIVE) - Progress Progress: improved, re-examined Air Movement: good Progress Note: 05/21/24 16:15 My medical decision making and the assignment of moderate complexity is based on review of the patient's past medical history, review of the patient's medication list, reviewed patient drug allergy list, history present illness and physical findings on examination. The workup in this patient includes placement of an intravenous line, infusion of normal saline solution, urinalysis, CBC, BMP, monotest, viral swabs, chest x-ray. Differential diagnosis includes but is not limited to viral illness, mononucleosis, pneumonia, electrolyte abnormalities, dehydration, urinary tract infection 05/21/24 17:15 I interpreted the patient's laboratory data results. Based on the laboratory data results, the patient has a urinary tract infection, is mildly dehydrated and has influenza A. I interpreted the preliminary chest x-ray report on this patient. I see no acute cardiopulmonary process. 05/21/24 17:15 The patient declines the remainder of the workup since they have an explanation for her symptoms. Blood Culture(s) Obtained: No Antibiotics given: Yes Counseled pt/family regarding: lab results, diagnosis, need for follow-up, rad results Medical Desision Making - Independent Historian Additional History obtained from: Family - Diagnostic Testing Diagnostic test were ordered, analyzed, and reviewed by me: Yes Radiological Interpretation: Interpreted by me, Teleradiologist Report - Risk of complications The pt has a mod risk of morbidity or mortality based on: Need for prescription drug management - Departure Departure Disposition: Home Clinical Impression: Influenza A H1N1 infection, UTI (urinary tract infection), Mild dehydration Condition: Stable Critical Care Time: No Referrals: GREGOR BEAL DO [Primary Care Provider] - Follow up/PCP as directed Additional Instructions: Drink plenty of fluids. Get plenty of rest. Wear your mask when out and about. Take your antibiotics as prescribed. Take your other medications as prescribed Prescriptions: Cephalexin Mh 500 mg [Keflex 500 mg] 500 mg PO TID #21 cap
[2024-05-21] MEDS ORDERED: Sodium Chloride 0.9% 500 ML 500 ML IV ONE (16:07)
[2024-05-21] MEDS: Sodium Chloride 0.9% 500 ML 500 ML IV ONE (16:08)
[2024-05-21 16:41] LABS: INFLUENZA B NEGATIVE (NEGATIVE); RESPIRATORY SYNCTIAL VIRUS NEGATIVE (NEGATIVE); SARS-CoV-2 Xpert Express NEGATIVE (NEGATIVE)
[2024-05-21 16:46] LABS: INFLUENZA A POSITIVE (NEGATIVE)
[2024-05-21 16:54] LABS: Appearance Clear (Clear); Bilirubin Negative (Negative); Blood Negative (Negative); Glucose, Urine Negative (Negative); Ketones Trace (Negative); Leukocyte Esterase Small (Negative); Nitrite Negative (Negative); Protein,Urine Dip Trace (Negative); Urobilinogen 0.2 mg/dL (0.2)
[2024-05-21 16:59] LABS: Bacteria Rare /HPF (None Seen); Epithelial Cells Rare /HPF (None Seen); Hyaline Casts 0-2 /LPF (0-2); RBC 0-2 /HPF (0-5)
[2024-05-21] MEDS ORDERED: KEFLEX 500 MG ONE (17:29)
[2024-05-21] MEDS: KEFLEX 500 MG PO ONE (17:31)
[2024-05-21 17:34] VITALS: BP 134/67; PULSE 72; RESP 20; O2SAT 99
--- NOTE | 2024-05-21 22:40 | XRAY ---
Indication: Cough. Comparison: April 29, 2021 Portable chest remains inflated and clear. Heart and mediastinal structures within normal limits. Bony thorax intact again with osteopenia, mild degenerative changes, mild levoscoliosis, and incompletely visualized lumbar fusion hardware. Impression: Continued nonacute chest with chronic features.
== END 2024-05-21 17:45 | disposition home or self-care (01) ==
LOC: ED 15:32
DX: J10.1 Influenza due to other identified influenza virus with other respiratory manifestations (principal); N39.0 Urinary tract infection, site not specified; E86.0 Dehydration; R05.1 Acute cough; M79.10 Myalgia, unspecified site; Z79.899 Other long term (current) drug therapy
CPT/HCPCS: 0241U; 71045; 81001; 87086; 87651; 99285; 99283; A9270-GY